=== PATIENT | female | born 1985 | race Caucasian/White ===

== ENCOUNTER 2017-12-13 14:35 | Emergency (ER) | payer OTHER ==
[2017-12-13] MEDS ORDERED: ASPIRIN 81 MG TABLET, CHEWABLE PO ONE (14:59)
--- NOTE | 2017-12-13 15:02 | ER Document Report ---
ED Medical Screen (RME) - General Chief Complaint: Irregular Pulse Stated Complaint: IRREGULAR HEART RATE Time Seen by Provider: 12/13/17 14:56 Mode of Arrival: Ambulatory Information source: Patient Notes: 32-year-old female presents emergency department complaints of palpitations for the last week. Patient states that the palpitations lasted 3 days continuously. She states that they resolved and began again today. Patient states that she is having some associated shortness of breath. She denies any alleviating or exacerbating factors. Patient denies any recent travel, recent surgeries, calf pain, calf swelling, history of DVT or PE, hormone use. She denies any medical problems. She denies a history of hypertension, hyperlipidemia, coronary artery disease, family history of coronary artery disease. Patient does smoke. I have greeted and performed a rapid initial assessment of this patient. A comprehensive ED assessment and evaluation of the patient, analysis of test results and completion of the medical decision making process will be conducted by additional ED providers. PHYSICAL EXAMINATION: GENERAL: Well-appearing, well-nourished and in no acute distress. HEAD: Atraumatic, normocephalic. EYES: Pupils equal round extraocular movements intact, conjunctiva are normal. ENT: Nares patent NECK: Normal range of motion LUNGS: No respiratory distress Musculoskeletal: Normal range of motion NEUROLOGICAL: Normal speech, normal gait. PSYCH: Normal mood, normal affect. SKIN: Warm, Dry, normal turgor, no rashes or lesions noted. TRAVEL OUTSIDE OF THE [place] IN LAST 30 DAYS: No - Related Data Allergies/Adverse Reactions: Sulfa (Sulfonamide Antibiotics) Allergy (Verified 12/13/17 14:36) Physical Exam - Vital signs Vitals: Temp Pulse Resp BP Pulse Ox 98.3 F 79 14 134/91 H 99 12/13/17 14:45 12/13/17 14:45 12/13/17 14:45 12/13/17 14:45 12/13/17 14:45 Course - Vital Signs Vital signs: Temp Pulse Resp BP Pulse Ox 98.3 F 79 14 134/91 H 99 12/13/17 14:45 12/13/17 14:45 12/13/17 14:45 12/13/17 14:45 12/13/17 14:45 Doctor's Discharge - Discharge Referrals: LOCALMD,NO [Primary Care Provider] - Follow up as needed
--- NOTE | 2017-12-13 16:00 | RADIOLOGY REPORT (SQ) ---
EXAM DESCRIPTION: CHEST SINGLE VIEW COMPLETED DATE/TIME: 12/13/2017 3:51 pm REASON FOR STUDY: palpitation COMPARISON: None. EXAM PARAMETERS: NUMBER OF VIEWS: One view. TECHNIQUE: Single frontal radiographic view of the chest acquired. RADIATION DOSE: NA LIMITATIONS: None. FINDINGS: LUNGS AND PLEURA: No opacities, masses or pneumothorax. No pleural effusion. MEDIASTINUM AND HILAR STRUCTURES: No masses. Contour normal. HEART AND VASCULAR STRUCTURES: Heart normal in size. Normal vasculature. BONES: No acute findings. HARDWARE: None in the chest. OTHER: No other significant finding. IMPRESSION: NO ACUTE RADIOGRAPHIC FINDING IN THE CHEST. TECHNICAL DOCUMENTATION: JOB ID: [id number] [employer]- All Rights Reserved Reading location - IP/workstation name: [email or web address]
[2017-12-13 16:03] LABS: ABSOLUTE EOSINOPHILS # (AUTO) 0.3 10^3/uL (0.0-0.6); ABSOLUTE LYMPHOCYTES (AUTO) 2.7 10^3/uL (0.5-4.7); ABSOLUTE MONOCYTES (AUTO) 0.9 10^3/uL (0.1-1.4); ABSOLUTE NEUT (AUTO) 8.3 10^3/uL (1.7-8.2); BASOPHILS % (AUTO) 0.3 % (0-2); EOSINOPHILS % (AUTO) 2.6 % (0-6); HEMATOCRIT 40.4 % (36.0-47.0); HEMOGLOBIN 13.8 g/dL (12.0-15.5); LYMPHOCYTES % (AUTO) 22.4 % (13-45); MEAN CORPUSCULAR HGB CONC 34.2 g/dL (32.0-36.0); MEAN CORPUSCULAR VOLUME 88 fl (80-97); MONOCYTES % (AUTO) 7.2 % (3-13); PLATELET COUNT 287 10^3/uL (150-450); RED CELL DISTRIBUTION WIDTH 12.9 % (11.5-14.0); SEGMENTED NEUTROPHILS % (AUTO) 67.5 % (42-78); TOTAL CELLS COUNTED % (AUTO) 100 %; WHITE BLOOD COUNT 12.2 10^3/uL (4.0-10.5)
[2017-12-13 16:09] LABS: APPEARANCE,URINE CLEAR; BILIRUBIN,URINE NEGATIVE (NEGATIVE); COLOR,URINE COLORLESS; GLUCOSE, URINE NEGATIVE (NEGATIVE); KETONES,URINE NEGATIVE (NEGATIVE); LEUKOCYTE ESTERASE,URINE NEGATIVE (NEGATIVE); NITRITE,URINE NEGATIVE (NEGATIVE); PROTEIN,URINE NEGATIVE (NEGATIVE); URINE SPECIFIC GRAVITY 1.002; UROBILINOGEN,URINE NEGATIVE mg/dL (<2.0)
[2017-12-13 16:29] LABS: ALANINE AMINOTRANSFERASE 68 U/L (9-52); ALBUMIN 4.9 g/dL (3.5-5.0); ALKALINE PHOSPHATASE 56 U/L (38-126); ANION GAP 15 (5-19); ASPARTATE AMINO TRANSFERASE 61 U/L (14-36); BILIRUBIN,DIRECT 0.2 mg/dL (0.0-0.4); BILIRUBIN,TOTAL 0.4 mg/dL (0.2-1.3); BLOOD UREA NITROGEN 19 mg/dL (7-20); CALCIUM 10.1 mg/dL (8.4-10.2); CARBON DIOXIDE 25 mmol/L (22-30); CHLORIDE 102 mmol/L (98-107); GLUCOSE 86 mg/dL (75-110); POTASSIUM 4.3 mmol/L (3.6-5.0); SODIUM 141.5 mmol/L (137-145); TOTAL PROTEIN 7.7 g/dL (6.3-8.2)
[2017-12-13 16:32] LABS: URINE AMPHETAMINES SCREEN NEGATIVE; URINE BARBITURATES SCREEN NEGATIVE; URINE BENZODIAZEPINES SCREEN NEGATIVE; URINE COCAINE SCREEN NEGATIVE; URINE MARIJUANA (THC) SCREEN NEGATIVE; URINE METHADONE SCREEN NEGATIVE; URINE PHENCYCLIDINE SCREEN NEGATIVE
[2017-12-13 16:47] LABS: FREE T4 (FREE THYROXINE) 1.21 ng/dL (0.78-2.19)
--- NOTE | 2017-12-13 16:52 | ER Document Report ---
ED General - General Chief Complaint: Irregular Pulse Stated Complaint: IRREGULAR HEART RATE Time Seen by Provider: 12/13/17 14:56 Mode of Arrival: Ambulatory TRAVEL OUTSIDE OF THE [place] IN LAST 30 DAYS: No - HPI Notes: This is a 32-year-old female with no past medical history who presents for irregular heartbeat since this morning. She says that she did have symptoms about 1 week ago where she says that her heart intermittently "fluttered" and that lasted for 3 days. She said the symptoms improve with exercise and are more noticeable at rest. She does take a pre-workout supplement called "Lit", but states the symptoms were present before that and the supplement does not exacerbate them. She denies chest pain, lightheadedness or dizziness associated with the palpitations. Denies having anxiety - Related Data Allergies/Adverse Reactions: Sulfa (Sulfonamide Antibiotics) Allergy (Verified 12/13/17 14:36) Past Medical History - General Information source: Patient - Social History Smoking Status: Current Every Day Smoker Family History: Hypertension - Dad Patient has suicidal ideation: No Patient has homicidal ideation: No Renal/ Medical History: Denies: Hx Peritoneal Dialysis Review of Systems - Review of Systems Constitutional: denies: Diaphoresis, Malaise, Weakness Cardiovascular: Palpitations - Described as skipping a beat.. denies: Chest pain Physical Exam - Vital signs Vitals: Temp Pulse Resp BP Pulse Ox 98.3 F 79 14 134/91 H 99 12/13/17 14:45 12/13/17 14:45 12/13/17 14:45 12/13/17 14:45 12/13/17 14:45 - General General appearance: Appears well In distress: None - Respiratory Respiratory status: No respiratory distress Chest status: Nontender Breath sounds: Normal Chest palpation: Normal - Cardiovascular Rhythm: Regular Heart sounds: Normal auscultation, S1 appreciated, S2 appreciated Murmur: No - Abdominal Inspection: Normal Distension: No distension Tenderness: Nontender - Extremities General upper extremity: Normal inspection General lower extremity: Normal inspection - Neurological Neuro grossly intact: Yes Cognition: Normal Speech: Normal - Psychological Associated symptoms: Normal affect, Normal mood - Skin Skin Temperature: Warm Skin Moisture: Dry Skin Color: Normal Course - Re-evaluation Re-evalutation: 12/13/17 17:[address] Claudio. Did not capture any PVCs while in the room. Palpitations most likely related to preworkout supplement. Denied CP, SOB , or sx associated with the palpitations. - Vital Signs Vital signs: Temp Pulse Resp BP Pulse Ox 98.3 F 79 14 112/98 H 100 12/13/17 14:45 12/13/17 14:45 12/13/17 18:00 12/13/17 17:00 12/13/17 18:00 - Laboratory Result Diagrams: 12/13/17 15:38 12/13/17 15:38 Laboratory results interpreted by me: 12/13/17 12/13/17 15:38 15:38 WBC 12.2 H Absolute Neutrophils 8.3 H AST 61 H ALT 68 H Discharge - Discharge Clinical Impression: Palpitations Condition: Good Disposition: HOME, SELF-CARE Instructions: Palpitations (Irregular or Rapid Heartrate) ([facility]) Additional Instructions: He came to the hospital today for heart palpitations. All of your lab work was normal, your EKG was normal, which is all reassuring. This represents a benign condition. It is important to taper down on your pre-workout supplements as this could be the cause of your palpitations since you have been taking it for quite some time and the symptoms started about 3 weeks ago. Most importantly, you need to quit smoking. You have any concerns if your symptoms get worse, if you lose consciousness when you have a palpitation, have severe chest pain, immediately return to the emergency department. Forms: Smoking Cessation Education Referrals: LOCALMD,NO [NO LOCAL MD] - Follow up as needed
[2017-12-13 17:01] LABS: THYROID STIMULATING HORMONE 1.48 uIU/mL (0.47-4.68)
[2017-12-13 18:19] VITALS: BP 112/98
--- NOTE | 2017-12-13 18:38 | EKG REPORT ---
SEVERITY:- NORMAL ECG - SINUS RHYTHM : Confirmed by: Anurag De León MD 13-Dec-2017 18:38:03
== END 2017-12-13 18:19 | disposition home or self-care (01) ==
LOC: ER 14:35
DX: R00.2 Palpitations (principal); F17.200 Nicotine dependence, unspecified, uncomplicated
CPT/HCPCS: 36415; 71045; 80053; 80307; 81001; 81025; 84439; 84443; 84484; 85025; 93005; 93010; 99285